=== PATIENT | male | born 1935 | race Caucasian/White ===

== ENCOUNTER 2019-08-26 09:10 | Outpatient (CLI) | payer MEDICARE, SELFPAY ==
--- NOTE | 2019-08-26 | ECG_ITS ---
Measurements Intervals [place] Rate: 75 P: 85 W[place]: 250 QRS: 51 QRSD: 81 T: 33 QT: 393 QTc: 441 Interpretive Statements SINUS RHYTHM WITH FIRST DEGREE AV BLOCK ATRIAL PREMATURE COMPLEX DELAYED PRECORDIAL R/S TRANSITION ABNORMAL ECG Electronically Signed On 08-26-2019 11:43:30 CDT by Jorge Hopkins D.O.
--- NOTE | ~2019-08-26 | US_ITS ---
EXAMINATION: US scrotum doppler DATE: 08/26/2019 10:27 INDICATION: Left testicular mass TECHNIQUE: Testicular sonogram utilizing grayscale and Doppler COMPARISON: None. FINDINGS: The right testis measures 4.2 x 3.1 x 3.4 cm. The left testis measures 4.2 x 2.1 x 3.6 cm. Symmetric normal grayscale appearance to both testes with either ectasia of the the left rete testes. There is normal vascular flow to both testes. The right epididymis is normal with normal vascular flow. The le ft epididymis appears diffusely thickened and mildly hypoechoic relative to the right epididymis. The re is a 1.9 x 1.3 x 1.6 cm nodule in the left epididymal body which appears minimally hyperechoic wit h similar echotexture than the remainder of the epididymis. There are small bilateral hydroceles. Lef t varicocele. Appears to be increased amount echogenic fat at the caudal aspect of the left inguinal canal suggesting the presence of a fat-containing inguinal hernia. IMPRESSION: 1. 1.9 x 1.3 x 1.6 cm extratesticular nodule in the left epididymis. Differential would include foca l epididymitis, sperm granuloma, inflammatory pseudotumor, benign neoplasm such as myeloma or adenoma toid tumor or malignancy including epidermal adenocarcinoma,, sarcoma, metastases or lymphoma/leukemi a. 2. Suggestion of possible left inguinal hernia with increased fat at the caudal aspect of the left in guinal canal. Reviewed, dictated and finalized at location A. IMPRESSION: 1. 1.9 x 1.3 x 1.6 cm extratesticular nodule in the left epididymis. Different ial would include focal epididymitis, sperm granuloma, inflammatory pseudotumor , benign neoplasm such as myeloma or adenomatoid tumor or malignancy including epidermal adenocarcinoma,, sarcoma, metastases or lymphoma/leukemia. 2. Suggestion of possible left inguinal hernia with increased fat at the caudal aspect of the left inguinal canal.
[2019-08-26 09:58] LABS: Hematocrit 41.4 % (42.0-52.0); Hemoglobin 13.6 g/dL (14.0-18.0); Mean Corpuscular HGB Conc 32.9 g/dl (32-36); Mean Corpuscular Hemoglobin 32.4 pg (26-34); Mean Corpuscular Volume 98.6 fl (80-100); Mean Platelet Volume 11.3 fl (7.4-10.4); Platelet Count Result 203 k/mm3 (150-375); Red Cell Distribution Width 13.6 % (11.5-14.5); White Blood Count 4.1 K/mm3 (4.5-10.0)
[2019-08-26 10:17] LABS: Blood Urea Nitrogen 18 mg/dL (9-20); Calcium 9.2 mg/dL (8.4-10.2); Carbon Dioxide 27 mmol/L (22-30); Chloride 104 mmol/L (98-107); Estimated Glomerular Filt Rate 58; Glucose 97 mg/dL (75-110); Potassium 4.3 mmol/L (3.4-5.0); Sodium 137 mmol/L (137-145)
== END 2019-08-26 09:11 | disposition home or self-care (01) ==
LOC: ANHIMG 09:14
PROVIDERS: PCP Family Medicine; Visit Provider Physician Assistant Medical
DX: I49.9 Cardiac arrhythmia, unspecified (principal); N50.89 Other specified disorders of the male genital organs
CPT/HCPCS: 36415; 76870; 80048; 84443; 85027; 93005; 93976

== ENCOUNTER 2020-01-24 14:16 | Emergency (ER) | payer MEDICARE, SELFPAY ==
--- NOTE | ~2020-01-24 | XR_ITS ---
XR shoulder RT min 2V 01/24/2020 14:59 Indication: Right shoulder pain after fall Procedure: 4 views right shoulder Comparison: No prior studies for comparison. Findings: There is mild polyarticular osteoarthritis. Osteopenia. No acute fracture or traumatic trevor lignment. No focal soft tissue abnormality. No foreign bodies. Impression: 1: No acute fracture. Reviewed, dictated and finalized at location A. Impression: 1: No acute fracture.
[2020-01-24 14:24] VITALS: BP 190/80; PULSE 86; RESP 20; TEMP 37.3; O2SAT 99
--- NOTE | 2020-01-24 14:46 | ED.UPPEXIN ---
HPI - Extremity Injury (Upper) General Chief Complaint: Extremity Injury, Upper Stated Complaint: right shoulder pain Time Seen by Provider: 01/24/20 14:38 Source: patient and RN notes reviewed Mode of arrival: ambulatory Limitations: no limitations History of Present Illness HPI narrative: Patient presents today complaining of right shoulder injury. He fell yesterday onto his shoulder after tripping over a saw lying on the driveway. Denies head injury or LOC. States pain has progressively worsened since the injury. Denies numbness or tingling in the arm or hand. Rates his pain at rest 2/10, which increases to 10/10 with any movement. He took 2 Surya aspirin last night without relief. MD complaint: injury to: right and shoulder Related Data Home Medications Medication Instructions Recorded Confirmed atorvastatin 40 mg tablet 40 mg PO DAILY 03/11/19 01/24/20 clopidogrel 75 mg tablet 75 mg PO DAILY 03/11/19 01/24/20 fenofibric acid (choline) 135 mg 135 mg PO DAILY 03/11/19 01/24/20 capsule,delayed release omega-3 fatty acids 1,000 mg 1,000 mg PO BID 03/11/19 01/24/20 capsule Allergies Allergy/AdvReac Type Severity Reaction Status Date / Time escitalopram Allergy Unknown Agitated Verified 01/24/20 14:41 Review of Systems Review of Systems: Narrative: CONSTITUTIONAL: Denies body aches, fever, chills, or sweats. EYES: Denies visual changes, redness, or discharge. ENT: Denies rhinorrhea, congestion, sore throat, or otalgia. CARDIOVASCULAR: Denies chest pain, palpitations, or edema. RESPIRATORY: Denies cough or dyspnea. GASTROINTESTINAL: Denies abdominal pain, nausea, vomiting, or diarrhea. GENITOURINARY: Denies dysuria or hematuria. SKIN: Denies rash, itching, or wounds. MUSCULOSKELETAL: Denies back pain, or myalgia. + Right shoulder injury NEUROLOGIC: Denies headache, numbness, tingling, or weakness. PSYCH: Denies depression or anxiety. [facility] Social History Social History Smoking status: Never smoker Alcohol intake: current Comments At time of signature, I have reviewed and agree with nursing past medical, surgical, social and family history unless otherwise noted. Please see nursing chart for further information. There is no relevant family history pertinent to the presenting complaint Exam Narrative: Exam Narrative: GENERAL: Well-appearing, well-nourished, and in no acute distress. HEAD: Normocephalic, atraumatic. EYES: EOMI. No redness or drainage. Conjunctivae normal. ENT: Mucous membranes pink and moist. NECK: Normal AROM. CHEST: No respiratory distress. EXTREMITIES: Right shoulder: [place] tenderness to the posterior shoulder, extending laterally. No edema, ecchymosis, or erythema noted. Very limited range of motion due to severe pain with any movement. Distal sensation intact. Capillary refill normal. Radial pulse normal. There is some mild swelling into the right hand. SKIN: Warm, dry, no rash. Capillary refill normal. Normal skin turgor. NEURO: No focal deficits. Alert and oriented x3. Gait steady. PSYCH: Normal affect. No signs of depression or anxiety. Course Vital Signs Vital signs: Vital Signs Temperature 99.2 F 01/24/20 14:24 Pulse Rate 86 01/24/20 14:24 Respiratory Rate 20 01/24/20 14:24 Blood Pressure 190/80 H 01/24/20 14:24 Pulse Oximetry 99 01/24/20 14:24 Temperature 99.2 F 01/24/20 14:24 Pulse Rate 86 01/24/20 14:24 Respiratory Rate 20 01/24/20 14:24 Blood Pressure 190/80 H 01/24/20 14:24 Pulse Oximetry 99 01/24/20 14:24 Reviewed. Pt has been instructed to follow up with his PCP regarding his elevated blood pressure today. MDM - Extremity Injury (Upper) Differential Diagnosis Differential diagnosis: Likely dislocation of shoulder, fracture of humerus and other (Shoulder strain, rotator cuff tear) Imaging Data Radiologist's impression: ITS Impressions Shoulder X-R
== END 2020-01-24 15:34 | disposition home or self-care (01) ==
PROVIDERS: Emergency Provider Nurse Practitioner; PCP Family Medicine
DX: S49.91XA Unspecified injury of right shoulder and upper arm, initial encounter (principal); W18.09XA Striking against other object with subsequent fall, initial encounter; I10 Essential (primary) hypertension; Z95.1 Presence of aortocoronary bypass graft
CPT/HCPCS: 73030; 99213; G0463

== ENCOUNTER 2020-07-12 10:51 | Outpatient (CLI) | payer MEDICARE, SELFPAY | END 2020-07-12 10:52 | disposition home or self-care (01) | LOC: ANHCOVIDVC 10:51 | PROVIDERS: PCP Family Medicine | DX: Z23 Encounter for immunization (principal) | CPT/HCPCS: 0001A; 91300 ==

== ENCOUNTER 2020-08-02 10:46 | Outpatient (CLI) | payer MEDICARE, SELFPAY | END 2020-08-02 10:47 | disposition home or self-care (01) | LOC: ANHCOVIDVC 10:46 | PROVIDERS: PCP Family Medicine | DX: Z23 Encounter for immunization (principal) | CPT/HCPCS: 0002A; 91300 ==

== ENCOUNTER 2020-10-14 08:04 | Emergency (ER) | payer MEDICARE, SELFPAY ==
--- NOTE | 2020-10-14 08:09 | ED.UPPEXIN ---
HPI - Extremity Injury (Upper) General Chief Complaint: Fall Stated Complaint: Injury to right arm and 2 right fingers from fall Time Seen by Provider: 10/14/20 08:09 Source: patient and RN notes reviewed History of Present Illness HPI narrative: Patient is an 85-year-old male who presents the urgent care with complaints of abrasions to fourth and fifth digits of the right hand, right arm, and forehead. Patient states that he was chasing his bili goat this morning and fell into a lumber pile. Patient denies of any loss of consciousness when hitting his head. Currently denies of any vision changes, headache or nausea. Patient is currently on Xarelto. Patient is right-hand dominant. No other acute complaints. No acute distress noted. Patient aware of the plan of care. Some parts of this dictation were generated by voice recognition software and may contain typographical and/or grammatical inaccuracies. Related Data Home Medications Medication Instructions Recorded Confirmed atorvastatin 40 mg tablet 40 mg PO DAILY 03/11/19 01/31/20 fenofibric acid (choline) 135 mg 135 mg PO DAILY 03/11/19 01/31/20 capsule,delayed release omega-3 fatty acids 1,000 mg 1,000 mg PO BID 03/11/19 01/31/20 capsule isosorbide 20 mg-hydralazine 37.5 1 tablet PO BID tablet 01/26/20 01/31/20 mg tablet rivaroxaban 15 mg tablet 15 mg PO DAILY 01/26/20 01/31/20 Allergies Allergy/AdvReac Type Severity Reaction Status Date / Time escitalopram Allergy Unknown Agitated Verified 10/14/20 08:24 Review of Systems Review of Systems: Narrative: CONSTITUTIONAL: Denies fever, chills, or sweats. EYES: Denies visual changes, redness, or discharge. ENT: Denies rhinorrhea, congestion, sore throat, or otalgia. CARDIOVASCULAR: Denies chest pain, palpitations, or edema. RESPIRATORY: Denies cough or dyspnea. GASTROINTESTINAL: Denies abdominal pain, nausea, vomiting, or diarrhea. GENITOURINARY: Denies dysuria or hematuria. SKIN: Reports of abrasions to right fingertips, right forearm and forehead MUSCULOSKELETAL: Denies back pain, joint pain, or myalgia. NEUROLOGIC: Denies headache, numbness, or weakness. All other systems reviewed are negative, except as documented in HPI. [facility] Past Medical History Medical History Atherosclerosis of renal artery Atherosclerotic heart disease of [place] coronary artery with angina pectoris BMI 29.0-29.9,adult Cellulitis of leg, right Essential hypertension Stage III chronic kidney disease Family History Family History Sibling Family history of premature coronary heart disease Cerebrovascular accident Family history of throat cancer Mother Hypertension Social History Social History Smoking status: Never smoker Alcohol intake: current Comments At the time of my signature, I reviewed and agree with the nursing past medical, surgical, social, and family history. There is no relevant family history pertinent to the patient complaint. Exam Narrative: Exam Narrative: GENERAL: This is a well-nourished, well-developed patient, in no apparent distress. HEAD: normocephalic, atraumatic. EYES: PERRL. Sclera clear/white. Vision is grossly intact. EARS: External ears normal NOSE: External nose normal with no obvious nasal discharge, nares without redness, no rhinorrhea. THROAT: Mucous membranes moist NECK: Neck supple CARDIOVASCULAR: Regular rate and rhythm without murmurs, gallops, or rubs. RESPIRATORY: Clear to auscultation. Breath sounds equal bilaterally. No wheezes, rales, or rhonchi. SKIN: 5 cm superficial linear skin abrasion with ecchymotic contusion to the right forearm. 1 cm circular superficial flap to the tuft of the fourth digit of the right hand. 1 cm circular superficial flap to the tuft of the fifth digit of the right hand. 2 cm s
[2020-10-14 08:14] VITALS: BP 186/102; PULSE 94; RESP 20; TEMP 37.5; O2SAT 95
[2020-10-14] MEDS: TETANUS,DIPHTHERIA,AC PERTUSSIS ADULT (0.5 ML) BOOSTRIX IM (08:38)
== END 2020-10-14 08:58 | disposition left against medical advice (07) ==
PROVIDERS: Emergency Provider Nurse Practitioner Family; PCP Family Medicine
DX: S61.214A Laceration without foreign body of right ring finger without damage to nail, initial encounter (principal); S61.216A Laceration without foreign body of right little finger without damage to nail, initial encounter; S00.81XA Abrasion of other part of head, initial encounter; X58.XXXA Exposure to other specified factors, initial encounter; Z23 Encounter for immunization; I25.110 Atherosclerotic heart disease of native coronary artery with unstable angina pectoris; I10 Essential (primary) hypertension; I12.9 Hypertensive chronic kidney disease with stage 1 through stage 4 chronic kidney disease, or unspecified chronic kidney disease; N18.30 Chronic kidney disease, stage 3 unspecified
CPT/HCPCS: 90471; 90715; 99212; G0463